=== PATIENT | female | born 1980 | race Hispanic/Latino ===

== ENCOUNTER → 2017-12-02 | Outpatient (CLI) | payer BC | END | disposition home or self-care (01) | LOC: RAH 13:10 | PROVIDERS: ATTEND Physician Assistant Medical | DX: N60.12 Diffuse cystic mastopathy of left breast (principal); N60.11 Diffuse cystic mastopathy of right breast | CPT/HCPCS: 77066 ==

== ENCOUNTER → 2018-12-16 | Outpatient (CLI) | payer BC | END | disposition home or self-care (01) | LOC: RAH 09:18 | PROVIDERS: ATTEND Physician Assistant Medical | DX: Z12.31 Encounter for screening mammogram for malignant neoplasm of breast (principal) | CPT/HCPCS: 77067 ==

== ENCOUNTER 2019-04-09 10:28 | Emergency (ER) | payer BC ==
[2019-04-09] MEDS ORDERED: ACETAMINOPHEN EXTRA STRENGTH 500 MG TABLET ONE (11:02)
[2019-04-09 11:21] LABS: RAPID GROUP A STREP NEGATIVE (NEGATIVE)
== END 2019-04-09 11:57 | disposition home or self-care (01) ==
LOC: EDH 10:28
DX: J10.1 Influenza due to other identified influenza virus with other respiratory manifestations (principal)
CPT/HCPCS: 87804; 87880

== ENCOUNTER 2019-08-11 16:47 | Inpatient (IN) | payer BC ==
[~2019-08-11] VITALS: Ht 162.6 cm; Wt 90.4 kg
[2019-08-11 17:43] LABS: BASOPHILS % (AUTO) 0.4 % (0.0-5.0); EOSINOPHILS % (AUTO) 1.8 % (0.0-8.0); HEMATOCRIT 37.6 % (36-48); MEAN CORPUSCULAR HEMOGLOBIN 27.9 pg (27.0-33.0); MEAN CORPUSCULAR HGB CONC 32.4 g/dL (32.0-36.0); MEAN CORPUSCULAR VOLUME 85.8 fL (79-99); MONOCYTES % (AUTO) 7.4 % (3.0-13.0); NEUTROPHILS % (AUTO) 55.1 % (40.0-77.0); PLATELET COUNT (AUTO) 245 K/uL (130-400); RED BLOOD CELL COUNT(AUTO) 4.38 MIL/uL (4.00-5.50); RED CELL DISTRIBUTION WIDTH 14.5 % (11.0-15.5); WHITE BLOOD COUNT (AUTO) 9.4 K/uL (4.8-10.8)
[2019-08-11 17:48] LABS: CREATININE 0.7 mg/dL (0.5-1.5); POTASSIUM 3.2 mmol/L (3.5-5.1)
[2019-08-11 17:48] LABS: APPEARANCE,URINE Clear (CLEAR); BILIRUBIN,URINE Negative (NEGATIVE); COLOR,URINE Yellow (YELLOW); GLUCOSE, URINE (UA) Negative (NEGATIVE); KETONES,URINE Negative (NEGATIVE); LEUKOCYTE ESTERASE ,URINE Large (NEGATIVE); NITRATE,URINE Negative (NEGATIVE); OCCULT BLOOD,URINE Trace (NEGATIVE); PH,URINE 7.5 (5.0-8.0); PROTEIN,URINE Negative (NEGATIVE); UROBILINOGEN,URINE 0.2 mg/dL (0.2-1.0)
[2019-08-11 17:50] LABS: HCG,QUAL RESULT NEGATIVE (NEGATIVE)
[2019-08-11 17:52] LABS: ALBUMIN 3.8 g/dL (3.5-5.0); BILIRUBIN,TOTAL 0.2 mg/dL (0.2-1.0); TOTAL PROTEIN, SERUM 7.5 g/dL (6.0-8.3)
[2019-08-11] MEDS ORDERED: HYOSCYAMINE SULFATE 0.125 MG TAB.SUBL SL ONE (18:07)
[2019-08-11] MEDS ORDERED: FAMOTIDINE/PF 20 MG/2 ML VIAL IV ONE (18:07)
[2019-08-11 18:17] LABS: BACTERIA,URINE Few /HPF (None Seen); MUCUS,URINE Few LPF (None Seen); SQUAMOUS EPITHELIAL CELL,UR Few /HPF (0-2)
[2019-08-11] MEDS ORDERED: LIDOCAINE HCL 2% VISCOUS 15 ML UDCUP ONE (19:38)
[2019-08-11] MEDS ORDERED: MAG HYDROX/AL HYDROX/SIMETH ES 30 ML SUSP UDCUP ONE (19:38)
[2019-08-11] MEDS ORDERED: KETOROLAC TROMETHAMINE 60 MG/2 ML VIAL ONE (20:37)
[2019-08-12 01:45] VITALS: BP 153/84
[2019-08-12] MEDS ORDERED: NITR100C9 PO (02:12)
[2019-08-12] MEDS ORDERED: [UNRECOGNIZED DRUG - OTHER] PO (02:12)
[2019-08-12 03:30] VITALS: BP 142/80
[2019-08-12] MEDS ORDERED: HYDROMORPHONE 1 MG/1 ML AMP IVP PRN (03:30)
[2019-08-12] MEDS: SODIUM CHLORIDE 0.9% 1000ML 1,000 ML IV SCH ×2 (03:30→12:33)
[2019-08-12] MEDS ORDERED: ONDANSETRON HCL 4 MG/2 ML VIAL IVP PRN (03:30)
[2019-08-12 05:39] LABS: HEMATOCRIT 34.8 % (36-48); MEAN CORPUSCULAR HEMOGLOBIN 28.5 pg (27.0-33.0); MEAN CORPUSCULAR HGB CONC 32.8 g/dL (32.0-36.0); RED CELL DISTRIBUTION WIDTH 14.4 % (11.0-15.5); WHITE BLOOD COUNT (AUTO) 7.6 K/uL (4.8-10.8)
[2019-08-12 05:56] LABS: ALBUMIN 3.1 g/dL (3.5-5.0); BILIRUBIN,TOTAL 0.3 mg/dL (0.2-1.0); CREATININE 0.7 mg/dL (0.5-1.5); POTASSIUM 3.4 mmol/L (3.5-5.1); TOTAL PROTEIN, SERUM 6.4 g/dL (6.0-8.3)
[2019-08-12] MEDS ORDERED: LIDOCAINE HCL-MPF 1% 2ML VIAL IV PRN (07:00)
[2019-08-12] MEDS ORDERED: POTASSIUM CHLORIDE 20MEQ/100ML 100 ML IV PRN ×2 (07:00→12:15)
[2019-08-12] MEDS ORDERED: PANTOPRAZOLE 40 MG/VIAL IVP SCH (09:00)
[2019-08-12 09:23] VITALS: BP 119/75
--- NOTE | 2019-08-12 10:43 | NUR ---
DR. BALTAZAR CALLED, AWARE OF CONSULT, WILL SEE PT. THIS AM.
--- NOTE | 2019-08-12 11:00 | NUR ---
CM DC PLANNING MET W PATIENT AT BEDSIDE. LIVES W CHILDREN, EMPLOYED [employer], ACTIVE NO DME, DRIVES, INDEPENDENT, STATES UJAN Winston MD , WAS THERE RECENTLY FOR A UTI; EXPECT DC IN AM , [facility], SISTER TO PROVIDE TRANSPORT Addendum: 08/12/19 at 2112 by PARMJIT BLAND RN CM Amended: Links added.
--- NOTE | 2019-08-12 11:30 | NUR ---
DR. STEIN IN TO SEE PT. WILL START ON CLD AND ADVANCE, IF TOLERATES AND NO PAIN WILL REC DISCHARGE AND FOLLOW UP OUTPATIENT.
[2019-08-12] MEDS ORDERED: POTASSIUM CHLORIDE 20 MEQ ERTAB PO PRN (12:15)
[2019-08-12] MEDS ORDERED: POTASSIUM CHLORIDE 10% ELIXIR 20 MEQ/15 ML UDCUP PO PRN ×2 (12:15)
[2019-08-12] MEDS: ZOSYN 3.375GM+NS 50ML 50 ML IV SCH ×2 (12:24→21:27)
[2019-08-12 12:30] VITALS: BP 128/63
[2019-08-12] MEDS: POTASSIUM CHLORIDE 20 MEQ ERTAB PO PRN ×2 (14:07→16:48)
[2019-08-12 16:00] VITALS: BP 128/69
--- NOTE | 2019-08-12 16:00 | NUR ---
UP AD KM IN ROOM, STATES NO PAIN.
--- NOTE | 2019-08-12 19:43 | NUR ---
NEW IV START, 22G RT.. HAND,NS AT 100ML/HR
[2019-08-12 20:53] VITALS: BP 134/71
[2019-08-13 00:02] VITALS: BP 120/73
[2019-08-13 04:49] VITALS: BP 115/73
[2019-08-13] MEDS: ZOSYN 3.375GM+NS 50ML 50 ML IV SCH (05:09)
--- NOTE | 2019-08-13 06:49 | NUR ---
PATIENT UPDATE Pt comfortable overnight, tolerated the diet well. No complaints of abdominal pain, no nausea and vomiting. Continues with the iv antibiotics as per order. No complaints voiced out.
--- NOTE | 2019-08-13 06:53 | NUR ---
PATIENT UPDATE Slept fairly overnight, in between asking for warm compress for the rt lower extremity, which afforded relief. Continues with the slow hydration with NS at 50 cc/hr. Addendum: 08/13/19 at 0734 by VENKAT MALDONADO RN RN INTENDED FOR PATIENT IN 323. Addendum: 08/13/19 at 0735 by VENKAT MALDONADO RN RN INTENDED FOR PT IN 323.
[2019-08-13] MEDS ORDERED: PANTOPRAZOLE SODIUM 40 MG TABLET.DR ONE (08:29)
[2019-08-13] MEDS ORDERED: PANTOPRAZOLE SODIUM 40 MG TABLET.DR PO SCH (08:52)
[2019-08-13 09:06] VITALS: BP 119/81
--- NOTE | 2019-08-13 10:30 | NUR ---
DR. BALTAZAR TO SEE PT. FROM [facility] CAN BE DISCHARGED AND CAN FOLLOW UP IN HER CLINIC IN 1 TO 2 WEEKS.
[2019-08-13 11:46] VITALS: BP 103/57
--- NOTE | 2019-08-13 13:30 | NUR ---
DISCHARGED USING TEACH BACK, NO RX GIVEN, WILL FOLLOW UP WITH PCP ON PRN BASIS, INST. TO RETURN TO ER IF PAIN RETURNED INST. ON DIET. WILL AVOID SPICY AND FRIED FOODS. SALINE LOCK REMOVED NOW AND PT. WHEELED DOWN STAIRS WHERE FAMILY IS WAITING.
== END 2019-08-13 15:30 | disposition home or self-care (01) | DRG 446 ==
LOC: EDH 16:47 → EDHIP 23:55 → 3DH 08-12 01:45
PROVIDERS: ADMIT Family Medicine; ATTEND Family Medicine
DX: K80.00 Calculus of gallbladder with acute cholecystitis without obstruction (principal); E87.6 Hypokalemia; K76.0 Fatty (change of) liver, not elsewhere classified; Z87.440 Personal history of urinary (tract) infections
CPT/HCPCS: 36415; 76705; 76770; 80053; 81001; 81025; 82150; 83690; 85025; 85027; 87088; C9113; G0378; J1885; J2543; J3490

== ENCOUNTER → 2020-01-29 | Outpatient (CLI) | payer BC ==
[~2020-01-29] MED LIST: NITR100C9 PO; [UNRECOGNIZED DRUG - OTHER] PO
== END | disposition home or self-care (01) ==
LOC: RAH 12-22 10:41
PROVIDERS: ATTEND Physician Assistant Medical
DX: Z12.31 Encounter for screening mammogram for malignant neoplasm of breast (principal); N64.89 Other specified disorders of breast
CPT/HCPCS: 77067

== ENCOUNTER 2020-06-21 16:07 | Emergency (ER) | payer BC, MEDICAID ==
[2020-06-21 17:08] LABS: BASOPHILS % (AUTO) 0.3 % (0.0-5.0); EOSINOPHILS % (AUTO) 1.4 % (0.0-8.0); HEMATOCRIT 30.4 % (36-48); LYMPHOCYTES % (AUTO) 27.5 % (21.0-51.0); MEAN CORPUSCULAR HEMOGLOBIN 26.8 pg (27.0-33.0); MEAN CORPUSCULAR HGB CONC 32.6 g/dL (32.0-36.0); MEAN CORPUSCULAR VOLUME 82.4 fL (79-99); MONOCYTES % (AUTO) 7.1 % (3.0-13.0); NEUTROPHILS % (AUTO) 63.3 % (40.0-77.0); PLATELET COUNT (AUTO) 216 K/uL (130-400); RED BLOOD CELL COUNT(AUTO) 3.69 MIL/uL (4.00-5.50); RED CELL DISTRIBUTION WIDTH 15.7 % (11.0-15.5); WHITE BLOOD COUNT (AUTO) 11.1 K/uL (4.8-10.8)
[2020-06-21 17:17] LABS: APPEARANCE,URINE Clear (CLEAR); BILIRUBIN,URINE Negative (NEGATIVE); COLOR,URINE Yellow (YELLOW); GLUCOSE, URINE (UA) Negative (NEGATIVE); KETONES,URINE Trace mg/dL (NEGATIVE); LEUKOCYTE ESTERASE ,URINE Small (NEGATIVE); NITRATE,URINE Negative (NEGATIVE); OCCULT BLOOD,URINE Negative (NEGATIVE); PROTEIN,URINE Negative (NEGATIVE)
[2020-06-21 17:20] LABS: CREATININE 0.6 mg/dL (0.5-1.5); POTASSIUM 3.1 mmol/L (3.5-5.1)
[2020-06-21 17:25] LABS: RBC,URINE 0-1 /HPF (0-1)
[2020-06-21 17:26] LABS: BACTERIA,URINE Few /HPF (None Seen); MUCUS,URINE Few LPF (None Seen); SQUAMOUS EPITHELIAL CELL,UR Moderate /HPF (0-2)
[2020-06-21] MEDS ORDERED: POTASSIUM BICARB/CIT AC 25 MEQ TABLET.EFF ONE (17:36)
[2020-06-21] MEDS ORDERED: CEPHALEXIN 500 MG CAPSULE ONE (17:36)
[2020-06-21 17:45] LABS: ALBUMIN 3.1 g/dL (3.5-5.0); BILIRUBIN,TOTAL 0.1 mg/dL (0.2-1.0); TOTAL PROTEIN, SERUM 6.7 g/dL (6.0-8.3)
== END 2020-06-21 18:39 | disposition home or self-care (01) ==
LOC: EDH 16:07
DX: O23.12 Infections of bladder in pregnancy, second trimester (principal); O99.282 Endocrine, nutritional and metabolic diseases complicating pregnancy, second trimester; E87.6 Hypokalemia; Z3A.19 19 weeks gestation of pregnancy
CPT/HCPCS: 36415; 76815; 80053; 81001; 84702; 85025

== ENCOUNTER 2020-08-12 07:00 | Emergency (ER) | payer BC, MEDICAID ==
[~2020-08-12] VITALS: Ht 162.6 cm; Wt 93.9 kg
[2020-08-12 07:02] VITALS: BP 121/67
[2020-08-12] MEDS ORDERED: ALBU2.5V2 IH (08:12)
[2020-08-12] MEDS ORDERED: OXYM30SP27 NS (08:12)
== END 2020-08-12 08:46 | disposition home or self-care (01) ==
LOC: EDH 07:00
DX: O99.512 Diseases of the respiratory system complicating pregnancy, second trimester (principal); J06.9 Acute upper respiratory infection, unspecified; Z79.899 Other long term (current) drug therapy; Z3A.26 26 weeks gestation of pregnancy
CPT/HCPCS: 99281

== ENCOUNTER 2020-10-13 19:54 | Observation (INO) | payer BC, MEDICAID ==
[~2020-10-13] VITALS: Ht 162.6 cm; Wt 102.1 kg
[~2020-10-13 19:54] MED LIST changes: +ALBU2.5V2 IH; +OXYM30SP27 NS
[2020-10-13 20:06] VITALS: BP 132/68
[2020-10-13 20:26] LABS: APPEARANCE,URINE Clear (CLEAR); BILIRUBIN,URINE Negative (NEGATIVE); COLOR,URINE Yellow (YELLOW); GLUCOSE, URINE (UA) 500 mg/dL (NEGATIVE); KETONES,URINE 15 mg/dL (NEGATIVE); LEUKOCYTE ESTERASE ,URINE Small (NEGATIVE); NITRATE,URINE Negative (NEGATIVE); OCCULT BLOOD,URINE Negative (NEGATIVE); PROTEIN,URINE Negative (NEGATIVE)
[2020-10-13 20:30] LABS: AMPHET/METH SCREEN,URINE NEGATIVE (NEGATIVE); BARBITURATE SCREEN, URINE NEGATIVE (NEGATIVE); BENZODIAZEPINES SCREEN,URINE NEGATIVE (NEGATIVE); CANNABINOID SCREEN,URINE NEGATIVE (NEGATIVE); COCAINE SCREEN,URINE NEGATIVE (NEGATIVE); OPIATE SCREEN,URINE NEGATIVE (NEGATIVE); PHENCYCLIDINE SCREEN,URINE NEGATIVE (NEGATIVE)
[2020-10-13 20:37] LABS: BACTERIA,URINE Few /HPF (None Seen); MUCUS,URINE Few LPF (None Seen); SQUAMOUS EPITHELIAL CELL,UR Moderate /HPF (0-2)
[2020-10-13] MEDS ORDERED: LACTATED RINGERS 1000ML 1,000 ML IV ONE (21:31)
[2020-10-13] MEDS ORDERED: LACTATED RINGERS 1000ML 1,000 ML IV SCH ×2 (22:16→22:17)
== END 2020-10-13 23:00 | disposition home or self-care (01) ==
LOC: EDH 19:54 → LDH 19:55
PROVIDERS: ADMIT Specialist; ATTEND Specialist
DX: O26.893 Other specified pregnancy related conditions, third trimester (principal); R10.30 Lower abdominal pain, unspecified; O60.03 Preterm labor without delivery, third trimester; Z3A.35 35 weeks gestation of pregnancy; Z79.899 Other long term (current) drug therapy
CPT/HCPCS: 59025; 80305; 81001; 96360; G0378 ×3; J7120

== ENCOUNTER 2020-11-13 06:45 | Inpatient (IN) | payer BC, MEDICAID ==
[~2020-11-13] VITALS: Ht 162.6 cm; Wt 101.6 kg
[2020-11-13 07:54] LABS: HEMATOCRIT 26.3 % (36-48); MEAN CORPUSCULAR HEMOGLOBIN 22.1 pg (27.0-33.0); MEAN CORPUSCULAR HGB CONC 29.3 g/dL (32.0-36.0); MEAN CORPUSCULAR VOLUME 75.6 fL (79-99); PLATELET COUNT (AUTO) 226 K/uL (130-400); RED BLOOD CELL COUNT(AUTO) 3.48 MIL/uL (4.00-5.50); RED CELL DISTRIBUTION WIDTH 18.2 % (11.0-15.5)
[2020-11-13] MEDS ORDERED: LACTATED RINGERS 1000ML 1,000 ML IV SCH (08:00)
[2020-11-13] MEDS ORDERED: CEFAZOLIN SODIUM 1 GM VIAL IVP PRN (08:00)
[2020-11-13 08:16] LABS: APPEARANCE,URINE Cloudy (CLEAR); BILIRUBIN,URINE Negative (NEGATIVE); COLOR,URINE Yellow (YELLOW); GLUCOSE, URINE (UA) Negative (NEGATIVE); KETONES,URINE Negative (NEGATIVE); LEUKOCYTE ESTERASE ,URINE Large (NEGATIVE); NITRATE,URINE Negative (NEGATIVE); OCCULT BLOOD,URINE Negative (NEGATIVE); PH,URINE 6.5 (5.0-8.0); PROTEIN,URINE Negative (NEGATIVE)
[2020-11-13 08:24] VITALS: BP 128/64
[2020-11-13] MEDS ORDERED: CITRIC ACID/SODIUM CITRATE 30 ML UDCUP PO SCH (08:30)
[2020-11-13] MEDS ORDERED: METOCLOPRAMIDE 10 MG/2 ML VIAL IVP SCH (08:30)
[2020-11-13] MEDS ORDERED: OXYTOCIN-LR 20 UNITS/1000 ML 1,000 ML IV SCH (08:30)
[2020-11-13 08:45] LABS: BACTERIA,URINE Moderate /HPF (None Seen); MUCUS,URINE Rare LPF (None Seen); RBC,URINE 0-1 /HPF (0-1); SQUAMOUS EPITHELIAL CELL,UR Few /HPF (0-2)
[2020-11-13] MEDS ORDERED: MORPHINE PF 100MG/10ML AMP IV ONE (09:04)
[2020-11-13] MEDS ORDERED: FENTANYL CITRATE PF 50 MCG/1 ML 2ML VIAL ONE (09:05)
[2020-11-13] MEDS ORDERED: ONDANSETRON 4MG INJ ONE (09:33)
[2020-11-13] MEDS ORDERED: EPHEDRINE SULFATE 50 MG/ML AMPULE ONE (09:41)
[2020-11-13] MEDS ORDERED: PHENYLEPHRINE HCL 10 MG/ML 1ML VIAL IV ONE (09:57)
[2020-11-13] MEDS ORDERED: OXYTOCIN-LR 20 UNITS/1000 ML 1,000 ML IV PRN (10:00)
[2020-11-13] MEDS ORDERED: 0.9%NACL 10ML VIAL IVP PRN (10:00)
[2020-11-13 12:09] VITALS: BP 124/72
[2020-11-13] MEDS ORDERED: MEPERIDINE-PF 25 MG/ML SYG IV PRN (12:30)
[2020-11-13] MEDS ORDERED: DiphenhydrAMINE HCL 50 MG/ML VIAL IVP PRN (12:30)
[2020-11-13] MEDS ORDERED: NALOXONE HCL 0.4 MG/1 ML ML IVP PRN ×2 (12:30)
[2020-11-13] MEDS ORDERED: ONDANSETRON 4MG INJ IVP PRN (12:30)
[2020-11-13] MEDS ORDERED: PREN-196 PO (12:44)
[2020-11-13] MEDS: PROMETHAZINE HCL 25 MG/ML 1ML AMPULE IM PRN (13:54)
[2020-11-13] MEDS: MEPERIDINE-PF 75 MG/ML SYG IM PRN (14:00)
[2020-11-13 16:31] VITALS: BP 108/76
[2020-11-13] MEDS: DEXTROSE 5 %-0.45 % NACL 1,000 ML IV PRN (17:51)
[2020-11-13 19:30] VITALS: BP 115/72
[2020-11-13 23:14] VITALS: BP 112/65
[2020-11-14] MEDS: DEXTROSE 5 %-0.45 % NACL 1,000 ML IV PRN (01:43)
[2020-11-14] MEDS: PROMETHAZINE HCL 25 MG/ML 1ML AMPULE IM PRN (05:58)
[2020-11-14] MEDS: MEPERIDINE-PF 75 MG/ML SYG IM PRN (05:59)
[2020-11-14 06:11] VITALS: BP 106/56
[2020-11-14 06:46] LABS: MEAN CORPUSCULAR HEMOGLOBIN 21.7 pg (27.0-33.0); MEAN CORPUSCULAR HGB CONC 28.5 g/dL (32.0-36.0); MEAN CORPUSCULAR VOLUME 76.3 fL (79-99); NUCLEATED RED BLOOD CELLS 0.1 % (0.0-0.19); PLATELET COUNT (AUTO) 200 K/uL (130-400); RED BLOOD CELL COUNT(AUTO) 2.07 MIL/uL (4.00-5.50); RED CELL DISTRIBUTION WIDTH 18.5 % (11.0-15.5); WHITE BLOOD COUNT (AUTO) 13.8 K/uL (4.8-10.8)
[2020-11-14 06:52] LABS: HEMATOCRIT 15.8 % (36-48)
[2020-11-14] MEDS ORDERED: 0.9%NACL 1000ML 1,000 ML IV ONE (07:00)
[2020-11-14 07:16] LABS: HEPATITIS Bs ANTIGEN SCREEN P Negative (Negative)
[2020-11-14 07:37] VITALS: BP 110/63
[2020-11-14] MEDS ORDERED: HYDROCODONE/ACETAMINOPHEN 5/325 MG TAB PO PRN (09:30)
[2020-11-14] MEDS ORDERED: BISACODYL 10 MG SUPP.RECT RC PRN (09:30)
[2020-11-14] MEDS ORDERED: LANOLIN 30GM OINTMENT TP PRN (09:30)
[2020-11-14] MEDS ORDERED: ACETAMINOPHEN WITH CODEINE 1 TAB TAB PO PRN (09:30)
[2020-11-14] MEDS ORDERED: ACETAMINOPHEN 500 MG TABLET PO PRN (09:30)
[2020-11-14] MEDS: SIMETHICONE 80 MG TAB.CHEW PO PRN ×2 (10:26→20:12)
[2020-11-14] MEDS: IBUPROFEN 800 MG TAB PO SCH ×2 (10:27→19:08)
[2020-11-14 10:45] VITALS: BP 120/65
[2020-11-14 19:20] VITALS: BP 104/57
[2020-11-14] MEDS ORDERED: DIPH,PERTUSS(ACELL),TET VAC/PF 0.5 ML VIAL IM ONE ×2 (19:55→21:00)
[2020-11-14] MEDS: DOCUSATE SODIUM 100 MG CAP PO SCH (20:12)
[2020-11-14] MEDS ORDERED: MEASLES/MUMPS/RUBELLA VACCINE, LIVE 0.5 ML/VIAL SQ ONE (21:00)
[2020-11-14 23:01] VITALS: BP 122/74
[2020-11-14 23:48] LABS: HEMATOCRIT 25.4 % (36-48); MEAN CORPUSCULAR HEMOGLOBIN 26.6 pg (27.0-33.0); MEAN CORPUSCULAR HGB CONC 32.3 g/dL (32.0-36.0); MEAN CORPUSCULAR VOLUME 82.5 fL (79-99); NUCLEATED RED BLOOD CELLS 0.2 % (0.0-0.19); RED BLOOD CELL COUNT(AUTO) 3.08 MIL/uL (4.00-5.50); RED CELL DISTRIBUTION WIDTH 17.9 % (11.0-15.5)
[2020-11-15] MEDS: IBUPROFEN 800 MG TAB PO SCH ×2 (02:41→14:55)
[2020-11-15 04:10] VITALS: BP 105/55
[2020-11-15 07:10] VITALS: BP 140/73
[2020-11-15] MEDS: SIMETHICONE 80 MG TAB.CHEW PO PRN (09:03)
[2020-11-15] MEDS: DOCUSATE SODIUM 100 MG CAP PO SCH (09:03)
[2020-11-15 11:17] VITALS: BP 104/42
== END 2020-11-15 15:30 | disposition home or self-care (01) | DRG 785 ==
LOC: WSH 06:45 → EDSTATUS 08:55
PROVIDERS: ADMIT Specialist; ATTEND Specialist
PROC: 0UB70ZZ Excision of Bilateral Fallopian Tubes, Open Approach (ICD-10-PCS; 2020-11-13)
PROC: 3E0234Z Introduction of Serum, Toxoid and Vaccine into Muscle, Percutaneous Approach (ICD-10-PCS; 2020-11-13)
PROC: 3E0134Z Introduction of Serum, Toxoid and Vaccine into Subcutaneous Tissue, Percutaneous Approach (ICD-10-PCS; 2020-11-13)
PROC: 10D00Z1 Extraction of Products of Conception, Low, Open Approach (ICD-10-PCS; principal; 2020-11-13 08:55)
PROC: 30233N1 Transfusion of Nonautologous Red Blood Cells into Peripheral Vein, Percutaneous Approach (ICD-10-PCS; 2020-11-14)
DX: O36.63X0 Maternal care for excessive fetal growth, third trimester, not applicable or unspecified (principal); Z20.822 Contact with and (suspected) exposure to COVID-19; Z3A.40 40 weeks gestation of pregnancy; Z37.0 Single live birth; Z30.2 Encounter for sterilization; Z23 Encounter for immunization
CPT/HCPCS: 36415; 36430; 59510; 81001; 85027; 86592; 86850; 86900; 86901; 86923; 87088; 87340; 87635; 90707; 90715; A4344; G0378; J0690; J2175; J2274; J2370; J2405; J2550; J2590; J2765; J3010; J3490; J7030; J7120; P9016

== ENCOUNTER 2020-12-23 10:46 | Inpatient (IN) | payer BC, MEDICAID ==
[~2020-12-23] VITALS: Ht 162.6 cm; Wt 89.0 kg
[~2020-12-23 10:46] MED LIST changes: -ALBU2.5V2 IH; -NITR100C9 PO; -OXYM30SP27 NS; +PREN-196 PO; -[UNRECOGNIZED DRUG - OTHER] PO
[2020-12-23 11:11] LABS: BASOPHILS % (AUTO) 0.3 % (0.0-5.0); EOSINOPHILS % (AUTO) 1.1 % (0.0-8.0); HEMATOCRIT 39.2 % (36-48); LYMPHOCYTES % (AUTO) 24.8 % (21.0-51.0); MEAN CORPUSCULAR HEMOGLOBIN 27.4 pg (27.0-33.0); MEAN CORPUSCULAR HGB CONC 31.9 g/dL (32.0-36.0); MEAN CORPUSCULAR VOLUME 85.8 fL (79-99); MONOCYTES % (AUTO) 5.5 % (3.0-13.0); PLATELET COUNT (AUTO) 197 K/uL (130-400); RED BLOOD CELL COUNT(AUTO) 4.57 MIL/uL (4.00-5.50); RED CELL DISTRIBUTION WIDTH 18.4 % (11.0-15.5); WHITE BLOOD COUNT (AUTO) 7.9 K/uL (4.8-10.8)
[2020-12-23 11:22] LABS: APPEARANCE,URINE Clear (CLEAR); BILIRUBIN,URINE Negative (NEGATIVE); COLOR,URINE Yellow (YELLOW); GLUCOSE, URINE (UA) Negative (NEGATIVE); KETONES,URINE Negative (NEGATIVE); LEUKOCYTE ESTERASE ,URINE Trace (NEGATIVE); NITRATE,URINE Negative (NEGATIVE); OCCULT BLOOD,URINE Negative (NEGATIVE); PH,URINE 7.5 (5.0-8.0); PROTEIN,URINE Negative (NEGATIVE)
[2020-12-23 11:31] LABS: ALBUMIN 4.1 g/dL (3.5-5.0); BILIRUBIN,TOTAL 0.4 mg/dL (0.2-1.0); CREATININE 0.7 mg/dL (0.5-1.5); POTASSIUM 3.5 mmol/L (3.5-5.1); TOTAL PROTEIN, SERUM 7.7 g/dL (6.0-8.3)
[2020-12-23 11:32] LABS: AMPHET/METH SCREEN,URINE NEGATIVE (NEGATIVE); BARBITURATE SCREEN, URINE NEGATIVE (NEGATIVE); BENZODIAZEPINES SCREEN,URINE NEGATIVE (NEGATIVE); CANNABINOID SCREEN,URINE NEGATIVE (NEGATIVE); COCAINE SCREEN,URINE NEGATIVE (NEGATIVE); OPIATE SCREEN,URINE NEGATIVE (NEGATIVE); PHENCYCLIDINE SCREEN,URINE NEGATIVE (NEGATIVE)
[2020-12-23 11:44] LABS: BACTERIA,URINE Few /HPF (None Seen); RBC,URINE 0-1 /HPF (0-1); WBC,URINE 0-1 /HPF (0-1)
[2020-12-23] MEDS ORDERED: MORPHINE 4 MG SYG IV ONE (12:00)
[2020-12-23] MEDS ORDERED: ONDANSETRON 4MG INJ ONE (12:03)
[2020-12-23] MEDS ORDERED: MORPHINE 4 MG SYG ONE (12:04)
[2020-12-23] MEDS ORDERED: ONDANSETRON 4MG INJ IVP ONE (12:30)
[2020-12-23] MEDS ORDERED: HYDROMORPHONE 0.5 MG SYG (0.5MG/0.5ML) IVP PRN (15:00)
[2020-12-23] MEDS ORDERED: ZOSYN 3.375GM+NS 50ML 3.38 GM in 0.9%NACL 50ML 50 ML IV SCH (16:00)
[2020-12-23] MEDS ORDERED: ONDANSETRON 4MG INJ IVP PRN (16:00)
[2020-12-23 17:49] VITALS: BP 135/76
[2020-12-23 20:00] VITALS: BP 130/62
[2020-12-24] VITALS: BP 115/67
[2020-12-24] MEDS: ZOSYN 3.375GM +NS 50ML IV SCH ×4 (00:47→23:45)
[2020-12-24 04:00] VITALS: BP 110/61
[2020-12-24 04:22] LABS: BASOPHILS % (AUTO) 0.4 % (0.0-5.0); EOSINOPHILS % (AUTO) 2.1 % (0.0-8.0); HEMATOCRIT 37.9 % (36-48); LYMPHOCYTES % (AUTO) 24.7 % (21.0-51.0); MEAN CORPUSCULAR HEMOGLOBIN 27.4 pg (27.0-33.0); MEAN CORPUSCULAR HGB CONC 31.9 g/dL (32.0-36.0); MEAN CORPUSCULAR VOLUME 85.9 fL (79-99); MONOCYTES % (AUTO) 7.2 % (3.0-13.0); NEUTROPHILS % (AUTO) 65.3 % (40.0-77.0); PLATELET COUNT (AUTO) 203 K/uL (130-400); RED BLOOD CELL COUNT(AUTO) 4.41 MIL/uL (4.00-5.50); RED CELL DISTRIBUTION WIDTH 18.2 % (11.0-15.5); WHITE BLOOD COUNT (AUTO) 7.6 K/uL (4.8-10.8)
[2020-12-24 04:45] LABS: ALBUMIN 3.4 g/dL (3.5-5.0); BILIRUBIN,TOTAL 0.7 mg/dL (0.2-1.0); CREATININE 0.7 mg/dL (0.5-1.5); MAGNESIUM 1.7 mg/dL (1.80-2.40); POTASSIUM 3.3 mmol/L (3.5-5.1); TOTAL PROTEIN, SERUM 6.6 g/dL (6.0-8.3)
[2020-12-24 08:18] VITALS: BP 101/55
[2020-12-24] MEDS: PANTOPRAZOLE 40 MG/VIAL IVP SCH (08:54)
[2020-12-24 11:34] VITALS: BP 112/57
[2020-12-24] MEDS ORDERED: POTASSIUM CHLORIDE 20MEQ/100ML 100 ML IV PRN (14:00)
[2020-12-24] MEDS ORDERED: POTASSIUM CHLORIDE 10% ELIXIR 20 MEQ/15 ML UDCUP PO PRN (14:00)
[2020-12-24] MEDS ORDERED: LIDOCAINE HCL-MPF 1% 2ML VIAL IV PRN (14:00)
[2020-12-24 16:24] VITALS: BP 117/60
[2020-12-24] MEDS: KCL 20 MEQ ERTAB PO PRN ×3 (16:42→20:57)
[2020-12-24] MEDS: ACETAMINOPHEN 325 MG TAB PO PRN (20:57)
[2020-12-24] MEDS: MAGNESIUM 2GM PREMIX 50ML 50 ML IV PRN (20:58)
[2020-12-25] VITALS (7 sets, daily range): BP systolic 99–120; BP diastolic 53–76
[2020-12-25 04:39] LABS: HEMATOCRIT 37.3 % (36-48); MEAN CORPUSCULAR HEMOGLOBIN 27.3 pg (27.0-33.0); MEAN CORPUSCULAR HGB CONC 31.4 g/dL (32.0-36.0); MEAN CORPUSCULAR VOLUME 87.1 fL (79-99); RED BLOOD CELL COUNT(AUTO) 4.28 MIL/uL (4.00-5.50); RED CELL DISTRIBUTION WIDTH 18.3 % (11.0-15.5); WHITE BLOOD COUNT (AUTO) 6.5 K/uL (4.8-10.8)
[2020-12-25 05:05] LABS: ALBUMIN 3.3 g/dL (3.5-5.0); BILIRUBIN,TOTAL 0.5 mg/dL (0.2-1.0); CREATININE 0.7 mg/dL (0.5-1.5); MAGNESIUM 2.3 mg/dL (1.80-2.40); TOTAL PROTEIN, SERUM 6.6 g/dL (6.0-8.3)
[2020-12-25] MEDS: ZOSYN 3.375GM +NS 50ML IV SCH ×2 (08:56→16:52)
[2020-12-25] MEDS: PANTOPRAZOLE 40 MG/VIAL IVP SCH (08:56)
[2020-12-26] MEDS: ZOSYN 3.375GM +NS 50ML IV SCH ×3 (01:12→16:04)
[2020-12-26 03:47] VITALS: BP 99/46
[2020-12-26 07:00] VITALS: BP 113/61
[2020-12-26] MEDS: PANTOPRAZOLE 40 MG/VIAL IVP SCH (08:27)
[2020-12-26 11:00] VITALS: BP 126/78
[2020-12-26 15:00] VITALS: BP 121/79
[2020-12-26 19:56] VITALS: BP 110/62
[2020-12-27] VITALS (22 sets, daily range): BP systolic 99–153; BP diastolic 57–84
[2020-12-27] MEDS: ZOSYN 3.375GM +NS 50ML IV SCH ×3 (01:26→16:18)
[2020-12-27] MEDS: PANTOPRAZOLE 40 MG/VIAL IVP SCH (08:41)
[2020-12-27] MEDS ORDERED: GLYCOPYRROLATE 1 MG/5 ML SYRINGE ONE (16:23)
[2020-12-27] MEDS ORDERED: PROPOFOL 10 MG/ML 20ML VIAL IV ONE (16:23)
[2020-12-27] MEDS ORDERED: DEXAMETHASONE SOD PHOSPHATE 10MG/ML 1ML VIAL ONE (16:23)
[2020-12-27] MEDS ORDERED: FENTANYL CITRATE PF 50 MCG/1 ML 2ML VIAL ONE ×3 (16:23→19:26)
[2020-12-27] MEDS ORDERED: MIDAZOLAM HCL 1 MG/ML 2ML VIAL ONE (16:23)
[2020-12-27] MEDS ORDERED: ONDANSETRON 4MG INJ ONE (16:23)
[2020-12-27] MEDS ORDERED: NEOSTIGMINE 5MG/5ML SYR IV ONE (16:23)
[2020-12-27] MEDS ORDERED: SUCCINYLCHOLINE CHLORIDE 20 MG/ML 10 ML VIAL ONE (16:23)
[2020-12-27] MEDS ORDERED: LIDOCAINE PF 100MG/5ML (2%) SYRINGE 5ML ONE (16:23)
[2020-12-27] MEDS ORDERED: ROCURONIUM 10MG/1ML SYR 10 MG/ML ML ONE (16:24)
[2020-12-27] MEDS ORDERED: LIDOCAINE HCL 1% MDV 50ML VIAL ONE (17:07)
[2020-12-27] MEDS ORDERED: BUPIVACAINE/PF 0.5% 30ML VIAL ONE (17:07)
[2020-12-27] MEDS ORDERED: MEPERIDINE-PF 25 MG/ML SYG ONE ×2 (19:54→20:44)
[2020-12-27] MEDS ORDERED: KETOROLAC 30MG VIAL (30MG/ML) ONE (20:35)
[2020-12-28] VITALS (7 sets, daily range): BP systolic 134–145; BP diastolic 64–85
[2020-12-28] MEDS: ZOSYN 3.375GM +NS 50ML IV SCH ×3 (00:02→16:44)
[2020-12-28] MEDS: ACETAMINOPHEN 325 MG TAB PO PRN ×3 (01:06→14:25)
[2020-12-28 06:25] LABS: HEMATOCRIT 36.5 % (36-48); MEAN CORPUSCULAR HEMOGLOBIN 28.2 pg (27.0-33.0); MEAN CORPUSCULAR HGB CONC 32.9 g/dL (32.0-36.0); MEAN CORPUSCULAR VOLUME 85.9 fL (79-99); RED BLOOD CELL COUNT(AUTO) 4.25 MIL/uL (4.00-5.50); RED CELL DISTRIBUTION WIDTH 17.3 % (11.0-15.5)
[2020-12-28 07:00] LABS: CREATININE 0.6 mg/dL (0.5-1.5); MAGNESIUM 1.6 mg/dL (1.80-2.40)
[2020-12-28] MEDS: PANTOPRAZOLE 40 MG/VIAL IVP SCH (07:49)
[2020-12-28] MEDS: 0.9%NACL 10ML VIAL IVP PRN (07:49)
[2020-12-28 13:50] LABS: BILIRUBIN,TOTAL 0.4 mg/dL (0.2-1.0)
[2020-12-28 13:51] LABS: ALBUMIN 3.4 g/dL (3.5-5.0); TOTAL PROTEIN, SERUM 6.9 g/dL (6.0-8.3)
[2020-12-29] MEDS: ZOSYN 3.375GM +NS 50ML IV SCH ×3 (00:03→16:00)
[2020-12-29 03:34] VITALS: BP 158/85
[2020-12-29 07:50] VITALS: BP 152/89
[2020-12-29] MEDS: 0.9%NACL 10ML VIAL IVP PRN (08:05)
[2020-12-29] MEDS: PANTOPRAZOLE 40 MG/VIAL IVP SCH (08:05)
[2020-12-29] MEDS: ACETAMINOPHEN 325 MG TAB PO PRN ×2 (08:11→16:14)
[2020-12-29 11:57] VITALS: BP 135/85
[2020-12-29] MEDS: MAGNESIUM 2GM PREMIX 50ML 50 ML IV PRN (12:31)
[2020-12-29] MEDS ORDERED: ACET-2743 PO (16:47)
[2020-12-29 17:20] VITALS: BP 143/81
== END 2020-12-29 17:10 | disposition home or self-care (01) | DRG 769 ==
LOC: EDH 10:46 → EDHIP 13:46 → 3CH 16:00 → WSH 12-27 16:59
PROVIDERS: ADMIT Family Medicine; ATTEND Family Medicine
PROC: 0FT44ZZ Resection of Gallbladder, Percutaneous Endoscopic Approach (ICD-10-PCS; principal; 2020-12-27 17:54)
DX: O99.63 Diseases of the digestive system complicating the puerperium (principal); K80.00 Calculus of gallbladder with acute cholecystitis without obstruction; O99.285 Endocrine, nutritional and metabolic diseases complicating the puerperium; E87.6 Hypokalemia; E83.42 Hypomagnesemia; Z20.822 Contact with and (suspected) exposure to COVID-19; Z98.891 History of uterine scar from previous surgery
CPT/HCPCS: 36415; 74181; 76705; 78226; 80053; 80305; 81001; 82150; 83690; 83735; 84484; 85025; 85027; 87635; 93005; A9537; C9113; G0378; J0330; J1100; J1170; J1885; J2001; J2175; J2250; J2270; J2405; J2543; J2704; J2710; J3010; J3475; J3490; J7030; J7120

== ENCOUNTER 2021-03-28 15:14 | Emergency (ER) | payer BC, MEDICAID ==
[~2021-03-28] VITALS: Ht 162.6 cm; Wt 85.3 kg
[~2021-03-28 15:14] MED LIST changes: +ACET-2743 PO
[2021-03-28 15:46] LABS: BASOPHILS % (AUTO) 0.1 % (0.0-5.0); EOSINOPHILS % (AUTO) 0.2 % (0.0-8.0); HEMATOCRIT 37.9 % (36-48); LYMPHOCYTES % (AUTO) 5.7 % (21.0-51.0); MEAN CORPUSCULAR HEMOGLOBIN 27.5 pg (27.0-33.0); MEAN CORPUSCULAR HGB CONC 32.2 g/dL (32.0-36.0); MEAN CORPUSCULAR VOLUME 85.6 fL (79-99); MONOCYTES % (AUTO) 6.4 % (3.0-13.0); NEUTROPHILS % (AUTO) 87.4 % (40.0-77.0); PLATELET COUNT (AUTO) 123 K/uL (130-400); RED BLOOD CELL COUNT(AUTO) 4.43 MIL/uL (4.00-5.50); RED CELL DISTRIBUTION WIDTH 14.7 % (11.0-15.5); WHITE BLOOD COUNT (AUTO) 9.8 K/uL (4.8-10.8)
[2021-03-28 16:02] LABS: APPEARANCE,URINE Cloudy (CLEAR); BILIRUBIN,URINE Large (NEGATIVE); COLOR,URINE Dark Yellow (YELLOW); GLUCOSE, URINE (UA) Negative (NEGATIVE); KETONES,URINE 40 mg/dL (NEGATIVE); LEUKOCYTE ESTERASE ,URINE Small (NEGATIVE); NITRATE,URINE Positive (NEGATIVE); OCCULT BLOOD,URINE Trace (NEGATIVE); PH,URINE 5.5 (5.0-8.0); PROTEIN,URINE POS 2+ mg/dL (NEGATIVE)
[2021-03-28 16:03] LABS: HCG,QUAL RESULT NEGATIVE (NEGATIVE)
[2021-03-28 16:11] LABS: RBC,URINE 0-1 /HPF (0-1)
[2021-03-28 16:12] LABS: BACTERIA,URINE Few /HPF (None Seen); MUCUS,URINE Few LPF (None Seen); SQUAMOUS EPITHELIAL CELL,UR Moderate /HPF (0-2)
[2021-03-28 16:15] LABS: CREATININE 0.6 mg/dL (0.5-1.5); POTASSIUM 3.2 mmol/L (3.5-5.1)
[2021-03-28 16:47] LABS: ALBUMIN 3.1 g/dL (3.5-5.0); BILIRUBIN,TOTAL 2.8 mg/dL (0.2-1.0); TOTAL PROTEIN, SERUM 6.9 g/dL (6.0-8.3)
[2021-03-28] MEDS ORDERED: 0.9%NACL 1000ML 1,000 ML IV ONE ×2 (20:00→20:14)
[2021-03-28] MEDS ORDERED: FAMOTIDINE 20MG VIAL IV ONE ×2 (20:00→20:13)
[2021-03-28] MEDS ORDERED: MAG/ALUM/SIMETH 30 ML UDCUP PO ONE (20:00)
[2021-03-28] MEDS ORDERED: ONDANSETRON 4MG INJ IVP ONE (20:00)
[2021-03-28] MEDS ORDERED: MAG/ALUM/SIMETH 30 ML UDCUP ONE (20:13)
[2021-03-28] MEDS ORDERED: ONDANSETRON 4MG INJ ONE (20:13)
[2021-03-28] MEDS ORDERED: TAMS-1 PO (21:34)
[2021-03-28] MEDS ORDERED: DICY20TA2 PO (21:34)
[2021-03-28 21:44] VITALS: BP 131/75
== END 2021-03-28 22:02 | disposition home or self-care (01) ==
LOC: EDH 15:14
DX: N20.0 Calculus of kidney (principal); K76.89 Other specified diseases of liver; R10.84 Generalized abdominal pain; Z90.49 Acquired absence of other specified parts of digestive tract; Z98.890 Other specified postprocedural states; Z79.899 Other long term (current) drug therapy
CPT/HCPCS: 36415; 74176; 80053; 81001; 81025; 82150; 82550; 83690; 84702; 85025; 87088; 96361; 96374; 96375; 99284; J2405; J3490; J7030

== ENCOUNTER 2021-07-23 06:36 | Day surgery (SDC) | payer BC, MEDICAID ==
[2021-07-18 15:38] LABS: BASOPHILS % (AUTO) 0.5 % (0.0-5.0); EOSINOPHILS % (AUTO) 1.5 % (0.0-8.0); LYMPHOCYTES % (AUTO) 31.8 % (21.0-51.0); MEAN CORPUSCULAR HEMOGLOBIN 25.2 pg (27.0-33.0); MONOCYTES % (AUTO) 7.8 % (3.0-13.0); NEUTROPHILS % (AUTO) 58.1 % (40.0-77.0); PLATELET COUNT (AUTO) 253 K/uL (130-400); RED BLOOD CELL COUNT(AUTO) 3.81 MIL/uL (4.00-5.50); RED CELL DISTRIBUTION WIDTH 15.2 % (11.0-15.5); WHITE BLOOD COUNT (AUTO) 7.5 K/uL (4.8-10.8)
[2021-07-22 08:35] VITALS: BP 128/61
[~2021-07-23] VITALS: Ht 162.6 cm; Wt 84.7 kg
[2021-07-23] VITALS (15 sets, daily range): BP systolic 99–133; BP diastolic 53–65
[~2021-07-23 06:36] MED LIST changes: -ACET-2743 PO; +LACTATED RINGERS 1000ML 1,000 ML IV SCH; -PREN-196 PO
[2021-07-23] MEDS ORDERED: VASOPRESSIN 20 UNITS/ML 1ML VIAL ONE (08:58)
[2021-07-23] MEDS ORDERED: STRONG IODINE SOLN 14ML BOTTLE ONE (08:58)
[2021-07-23] MEDS ORDERED: MIDAZOLAM HCL 1 MG/ML 2ML VIAL ONE (09:01)
[2021-07-23] MEDS ORDERED: LIDOCAINE PF 100MG/5ML (2%) SYRINGE 5ML ONE (09:26)
[2021-07-23] MEDS ORDERED: ROCURONIUM 10MG/1ML SYR 10 MG/ML ML ONE (09:26)
[2021-07-23] MEDS ORDERED: PROPOFOL 10 MG/ML 20ML VIAL IV ONE (09:26)
[2021-07-23] MEDS ORDERED: FENTANYL CITRATE PF 50 MCG/1 ML 2ML VIAL ONE (09:28)
[2021-07-23] MEDS ORDERED: ONDANSETRON 4MG INJ ONE (10:10)
[2021-07-23] MEDS ORDERED: NEOSTIGMINE 5MG/5ML SYR IV ONE (10:13)
[2021-07-23] MEDS ORDERED: GLYCOPYRROLATE 1 MG/5 ML SYRINGE ONE (10:13)
== END 2021-07-23 12:30 | disposition home or self-care (01) ==
LOC: DAH 06:36
PROVIDERS: ATTEND Specialist
DX: N72 Inflammatory disease of cervix uteri (principal); N88.8 Other specified noninflammatory disorders of cervix uteri; Z79.01 Long term (current) use of anticoagulants; Z98.891 History of uterine scar from previous surgery; Z90.49 Acquired absence of other specified parts of digestive tract; Z98.51 Tubal ligation status; Z79.899 Other long term (current) drug therapy; Z98.890 Other specified postprocedural states
CPT/HCPCS: 36415; 57520; 84703; 85025; 87635; A4215; A4221; A4222; A4223; A4351; A4663; C9803; J2001; J2250; J2405; J2704; J2710; J3010; J3490 ×2; J7120

== ENCOUNTER → 2023-03-10 | Outpatient (CLI) | payer BC | END | disposition home or self-care (01) | LOC: RAH 10:21 | PROVIDERS: ATTEND Obstetrics & Gynecology | DX: Z12.31 Encounter for screening mammogram for malignant neoplasm of breast (principal) | CPT/HCPCS: 77067 ==

== ENCOUNTER → 2024-06-30 | Outpatient (CLI) | payer BC | END | disposition home or self-care (01) | LOC: RAH 15:10 | PROVIDERS: ATTEND Internal Medicine | DX: Z12.31 Encounter for screening mammogram for malignant neoplasm of breast (principal) | CPT/HCPCS: 77067 ==